=== PATIENT | female | born 1950 | race Caucasian/White ===

== ENCOUNTER 2019-05-23 17:46 | Emergency (ER) | payer MEDICARE, BC ==
[~2019-05-23] VITALS: Ht 157.5 cm; Wt 102.2 kg
[~2019-05-23 17:46] MED LIST: ASPI-817 PO; CARV10CP PO; CIPR500T4 PO; DOCU-144 PO; GLYB1TAB3 PO; HYDR-3498 PO; NOVMIX SQ; PRAM0.1224 PO; VALS1TAB65 PO; [UNRECOGNIZED DRUG - CODE] PO
[2019-05-23 17:57] VITALS: Ht 157.5 cm; Wt 102.2 kg
[2019-05-23] MEDS ORDERED: SOD CHLORIDE 0.9% 1,000 ML IV STA (19:09)
[2019-05-23] MEDS ORDERED: CARB-155 BOTH EARS (20:58)
[2019-05-23] MEDS ORDERED: hydrALAzine 20 MG INJ IV ONE (21:30)
--- NOTE | 2019-05-23 21:49 | ERD ---
ER Documentation Chief Complaint Chief Complaint Pt with generalizes weakness, B hearing loss, dizziness since last night. HPI This is a 68-year-old female that presents to the emergency department complaining of dizziness and bilateral decrease hearing loss that is been present for the past 24 hours. She was brought into the emergency department by her daughter. Her daughter indicated that yesterday she noticed the hearing had decreased as she turned up the volume on the TV. She was complaining of dizziness and lightheadedness with the room spinning around her. 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 She is able to ambulate as she underwent rehabilitation. She ambulate however with a walker. She takes Keppra. However she is had no seizure activity. Her primary care physician is Dr. Abernathy. She has also been complaining of frequency urgency and dysuria. She said no fevers or shaking no chills. No abdominal pain. No headache. No neck pain. No chest pain or shortness of breath. ROS All systems reviewed and are negative except as per history of present illness. Medications Home Meds Active Scripts Carbamide Peroxide* (Debrox*) 6.5% -15 Ml Drops, 10 DROP BOTH EARS BID, #1 EA Prov:ELY RUDOLPH MD 05/23/19 Docusate Sodium* (Colace*) 100 Mg Capsule, 100 MG PO TID, #30 CAP Prov:ELY RUDOLPH MD 01/15/16 Hydrocodone Bit-Acetaminophen* ([place]mont*) 5-325 Mg Tab, 1 TAB PO Q6 PRN for PAIN, #20 TAB Prov:ELY RUDOLPH MD 01/15/16 Ciprofloxacin Hcl* (Ciprofloxacin Hcl*) 500 Mg Tablet, 500 MG PO BID for 10 Days, TAB Prov:ELY RUDOLPH MD 01/15/16 Reported Medications Insulin Aspart (Novolog Mix (70/30)) 100 Units/Ml Soln, 0 SQ AC MEALS AND BEDTIME 08/19/11 Glyburide, Micro-Metformin Hcl (Glyburid-Metformin) 1 Tab Tablet, 1 TAB PO BID 08/19/11 Aspirin* (Aspirin* EC) 81 Mg Tablet., 81 MG PO DAILY 08/19/11 Pramipexole* (Mirapex*) 0.125 Mg Tablet, 0.125 MG PO DAILY 08/19/11 Trandolapril-Verapamil Hcl (Tarka) 1 Bottle Tbmp.24hr, 1 TAB PO DAILY 08/19/11 Carvedilol (Coreg Cr) 10 Mg Cpmp.24hr, 12.5 MG PO BID 08/19/11 Valsartan-Hydrochlorothiazide (Diovan HCT) 1 Tab Tablet, 1 TAB PO BID, #1 08/19/11 Allergies Allergies: Coded Allergies: No Known Allergies (Verified Allergy, 11/28/11) PMhx/Soc History of Surgery: Yes ( CATARACT SURGERY) Anesthesia Reaction: No Hx Neurological Disorder: No Hx Respiratory Disorders: No Hx Cardiac Disorders: No Hx Psychiatric Problems: No Hx Miscellaneous Medical Probl: Yes (HTN, CVA ) Hx Alcohol Use: No Hx Substance Use: No Hx Tobacco Use: No Smoking Status: Former smoker Physical Exam Vitals Vital Signs Date Temp Pulse Resp B/P (MAP) Pulse Ox O2 O2 Flow FiO2 Time Delivery Rate 05/23/19 80 21 166/131 98 Room Air 19:09 (143) 05/23/19 98.4 108 14 128/84 95 17:57 (99) Physical Exam Constitutional:Well-developed. Well-nourished. HEENT:Normocephalic. Atraumatic.Pupils were equal round reactive to light. Moist mucous membranes.No tonsillar exudates. Serum impaction bilaterally Neck: No nuchal rigidity. No lymphadenopathy. No posterior cervical spine te nderness or step-offs. Respiratory: Not using accessory muscles of respiration.Lungs were clear to a uscultation bilaterally. No rhonchi. No rales. No wheezing. Cardiovascular: Regular rate regular rhythm.No murmurs. No rubs were appreciated.S1, S2 normal. Distal pulses are palpable 2+ bilaterally. GI: Abdomen obese so exam is limited due to body habitus nontender. Non Distended. No pulsatile abdominal masses or bruits. No rebound. No guarding. Bowel sounds were present and normal. Muscle skeletal: Full range of motion of both the upper and lower extremities bilaterally.Normal muscle tone.No assymetrical calf tenderness or swelling. Skin: No petechia, no purpura. No lesions on the palms or the soles of the feet. No maculopapular rash. NEURO: Patient was alert, awake, orientated x3.No facial droop. Gait observed and normal with no ataxia.Speech had regular rate and rhythm. No focal neur ological deficits. Result Diagram: 05/23/19192105/23/191921 Results 24 hrs Laboratory Tests Test 05/23/19 19:22 05/23/19 19:29 White Blood Count 8.7 10^3/ul Red Blood Count 4.77 10^6/ul Hemoglobin 13.7 g/dl Hematocrit 43.2 % Mean Corpuscular Volume 90.6 fl Mean Corpuscular Hemoglobin 28.7 pg Mean Corpuscular Hemoglobin Concent 31.7 g/dl Red Cell Distribution Width 13.2 % Platelet Count 290 10^3/UL Mean Platelet Volume 11.3 fl Immature Granulocytes % 0.200 % Neutrophils % 53.7 % Lymphocytes % 36.4 % Monocytes % 6.6 % Eosinophils % 2.4 % Basophils % 0.7 % Nucleated Red Blood Cells % 0.0 /100WBC Immature Granulocytes # 0.020 10^3/ul Neutrophils # 4.7 10^3/ul Lymphocytes # 3.2 10^3/ul Monocytes # 0.6 10^3/ul Eosinophils # 0.2 10^3/ul Basophils # 0.1 10^3/ul Nucleated Red Blood Cells # 0.0 10^3/ul Prothrombin Time 12.1 Sec Prothrombin Time Ratio 0.9 INR International Normalized Ratio 0.89 Activated Partial Thromboplast Time 31.2 Sec Sodium Level 143 mmol/L Potassium Level 4.9 mmol/L Chloride Level 103 mmol/L Carbon Dioxide Level 31 mmol/L Anion Gap 9 Blood Urea Nitrogen 20 mg/dl Creatinine 0.76 mg/dl Est Glomerular Filtrat Rate mL/min > 60 mL/min Glucose Level 137 mg/dl Calcium Level 9.9 mg/dl Total Bilirubin 0.4 mg/dl Direct Bilirubin 0.00 mg/dl Indirect Bilirubin 0.4 mg/dl Aspartate Amino Transf (AST/SGOT) 35 IU/L Alanine Aminotransferase (ALT/SGPT) 10 IU/L Alkaline Phosphatase 63 IU/L Troponin I 0.018 ng/ml Total Protein 9.2 g/dl Albumin 4.6 g/dl Globulin 4.60 g/dl Albumin/Globulin Ratio 1.00 Amylase Level 73 U/L Lipase 15 U/L Urine Color YELLOW Urine Clarity CLOUDY Urine pH 5.0 Urine Specific [place] 1.023 Urine Ketones TRACE mg/dL Urine Nitrite POSITIVE mg/dL Urine Bilirubin NEGATIVE mg/dL Urine Urobilinogen NEGATIVE mg/dL Urine Leukocyte Esterase 2+ Shannon/ul Urine Microscopic RBC 3 /HPF Urine Microscopic WBC > 182 /HPF Urine Squamous Epithelial Cells FEW /HPF Urine Bacteria FEW /HPF Urine Hemoglobin NEGATIVE mg/dL Urine Glucose NEGATIVE mg/dL Urine Total Protein NEGATIVE mg/dl Current Medications Medications Dose Sig/Jacek Start Time Status Last (Trade) Ordered Route PRN Stop Time Admin Dose Reason Admin Sodium 1,000 ml @ Q1H STAT 05/23/19 DC 05/23/19 Chloride 1,000 mls/hr IV 19:09 19:24 05/23/19 20:08 Hydralazine 20 mg ONCE ONCE 05/23/19 DC 05/23/19 HCl IV 21:30 21:47 (Apresoline) 05/23/19 21:31 Ceftriaxone 50 ml @ ONCE ONCE 05/23/19 05/23/19 Sodium 100 mls/hr IVPB 22:00 21:47 05/23/19 22:29 Procedures/MDM This patient was seen and evaluated by myself. The patient presented to the emergency department complaining of dizziness. My differential diagnosis included but was not limited to hypovolemia, myocardial infarction, pulmonary embolism, hypoglycemia, hypoxia, anemia, vasovagal episode, hypothyroidism, anxiety, peripheral or central vertigo. The patient was placed on a equipment monitor phototypesetting, continuous pulse oximetry and IV access established by nursing staff. 12 Lead EKG tracing ordered and reviewed by myself showed: Normal sinus rhythm of 76 bpm and no arrhythmia. OH interval normal. QRS duration normal. No ST segment elevation No ST segment depression. No changes consistent with acute ischemia. I did obtain a CT scan of the patient's head given that she is had previous CVAs and the family was concerned as she did have an episode of dizziness prior to her cerebrovascular accident [address] scan of the head reviewed by radiologist myself indicate the followin. No evidence of acute intracranial pathology. The brain is grossly stable in appearance. 2. Chronic cerebral infarcts are again identified bilaterally as well as small chronic left thalamic lacunar infarct. The chronic infarct is again seen in the right external capsule. 3. 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 The patient did have an episode of hypertension in the emergency department with a soft systolic blood pressure of 200. She received IV hydralazine. There is no signs of endorgan damage to suggest hypertensive emergency or urgency. The patient had no leukocytosis or severe electrolyte abnormalities. However the patient had a significant urinary tract infection with pyuria. The patient received a dose of IV ceftriaxone in the emergency department. Given that the patient was afebrile with good outpatient follow-up I did feel she could be discharged home with Keflex. She will follow-up with Dr. Abernathy with her primary care physician. I felt the patient's dizziness was a result of serum impaction. Bilateral ear irrigation occurred in the emergency department she will be sent home with Debrox. The patient was discharged home in fair condition. They were instructed to return to the emergency department at any time if there was any worsening of their condition. The patient stated they would follow up with their PCP in the next 24-48 hours to initiate a suitable medication regimen under the care of their PCP as well as to allow their PCP to monitor any drug reactions. The patient was discharged home with prescriptions after they gave informed consent to the new medication. They were also fully informed by myself on the adverse effects and adverse drug interactions in order to provide adequate safeguards to prevent possible adverse reactions to medications. Departure Diagnosis: Primary Impression: Impacted ear wax Laterality: bilateral Qualified Codes: H61.23 - Impacted cerumen, bilateral Additional Impression: Urinary tract infection Urinary tract infection type: acute cystitis Hematuria presence: without hematuria Qualified Codes: N30.00 - Acute cystitis without hematuria Condition: Fair Patient Instructions: Ear Wax, Treated Referrals: MONY ABERNATHY MD (PCP) ELY RUDOLPH MD May 23, 2019 21:49
[2019-05-23] MEDS ORDERED: CEFTRIAXONE 1 GM/50 ML (PMX) 50 ML IVPB ONE (22:00)
[2019-05-23] MEDS ORDERED: CEPH-443 PO (22:03)
[2019-05-23 22:45] VITALS: BP 131/70; PULSE 81; RESP 22
== END 2019-05-23 22:55 | disposition home or self-care (01) ==
LOC: E/R 17:46
DX: H61.23 Impacted cerumen, bilateral (principal); N30.00 Acute cystitis without hematuria; I10 Essential (primary) hypertension; E11.9 Type 2 diabetes mellitus without complications; R42 Dizziness and giddiness; Z86.73 Personal history of transient ischemic attack (TIA), and cerebral infarction without residual deficits; Z79.4 Long term (current) use of insulin; Z79.82 Long term (current) use of aspirin; Z87.891 Personal history of nicotine dependence
CPT/HCPCS: 69209; 70450; 80053; 81001; 82150; 83690; 84484; 85025; 85610; 85730; 87086; 93005; 96374; 96375; 99285; A4310; J0360; J0696; J7030